=== PATIENT | male | born 1950 | race Caucasian/White ===

== ENCOUNTER 2017-03-13 20:15 | Emergency (ER) | payer MEDICARE, OTHER ==
[~2017-03-13 20:15] MED LIST: Calcium CHLORIDE 10% SYRINGE* 1 GM/10 ML ONE; EPINEPHrine SYR 0.1 MG/ML* (1:10,000) SYRINGE ONE; Sodium Bicarbonate 8.4%* 50 ML SYRINGE ONE
[2017-03-13 20:49] VITALS: BP 0/0
--- NOTE | 2017-03-13 21:46 | ED ---
Isaias Mederos Nilda, scribed for Maria Fernanda Lindsay MD on 03/13/17 at 2025 . Cardiac Resuscitation - HPI Summary HPI Summary: LVL 5 CAVEAT: Hx is limited due to pt unresponsiveness. This patient is a 66 year old M BIBA in cardiac arrest for the past 35 mins. Per EMS, pt was unresponsive and called 911. Per , pt had dinner and they were watching TV as they usually do. looked over at pt when she saw his eyes were wide open, took a huge gasp of air, had his tongue sticking out, and then stopped breathing. reports pt unresponsive and had urinary incontinence. states pt was former smoker who quit smoking for 3 years. denies CABG and stents. - History of Current Complaint Stated Complaint: RESPIRATORY DISTRESS Hx Obtained From: EMS Onset/Duration: Minutes/Hours: - 30 Arrest Witnessed: Yes Down-time Before Basic Life Support Initiated: Unknown Down-time Before Advanced Life Support Initiated: Down-time before ALS initiated : - 10 minutes Was AED Placed on Patient: Yes AED Placed on Patient By: EMS Did AED Recommend Defibrillation: Yes Was Defibrillating Shock Administered: Yes Did Patient Have Return of Spontaneous Circulation (ROSC): No - Prehospital Findings Airway: Gag Reflex Absent Breathing: Apnea Circulation/Rhythm: Asystole Disability/Neurologic: Unresponsive - Prehospital Intervention Airway: Other: Breathing: ETT Cuffed Circulation/Rhythm: Chest Compressions - Prehospital Response Airway: Gag Reflex Absent Breathing: ETT in Airway: Circulation/Rhythm: Asystole - Additional Pertinent History Do Not Resuscitate/Living Will: No EMS/Code Sheet Reviewed: Yes Total Down Time TAPE MAKER (minutes): 35 - Past Medical History Past Medical History: Coronary Artery Disease - Family History Family History: Unobtainable Due to Extremis - Social History Social History: Lives with Family - Review of Systems Review of Systems: Other: - unresponsive, no breathing, urinary incontinence ( per ) Physical Examination - Physical Examination Completion Of Physical Exam Limited Due To: Extremis Resuscitation Termination Time: 20:26 Resuscitation: Unsuccessful Physical Exam Additional Comments: Pt is breathless, pulsless, ET tube in place, pt bilat breath sounds with ambo bag. Abd distended. Pupils 2mm, equal, and fixed. - ED Findings Airway: Patent Breathing: Apnea Circulation/Rhythm: Asystole Disability/Neurological: Unresponsive - ED Intervention Breathing: ETT Cuffed - ED Response Airway: Gag Reflex Absent Breathing: ETT in Airway: Circulation/Rhythm: Asystole - Glascow Coma Score Eye Openin - None Motor: 1 - None Verbal: 1 - Intubated Coma Scale Total: 3 T Diagnostics - Vital Signs Vital Signs Temp Pulse Resp BP Pulse Ox 03/13/17 20:15 35.7 C 0 0 0/0 97 - Laboratory Lab Results: Lab Results 03/13/17 Range/Units 20:27 POC Glucose (mg/dL) 252 H (70-100) mg/dL Lab Statement: Any lab studies that have been ordered have been reviewed, and results considered in the medical decision making process. Cardiac Resus. Course/Dx - Course Assessment/Plan: ABC alert 1999. This pt is a 66 y/o male whose history was taken from and EMS. PMHx of HTN and longtime smoking. Pt quit smoking 3 years ago. Per , pt had dinner, sat in recliner, and fell asleep. Pt suddenly stopped breathing. called 911. When first responders arrived pt was placed on AED, which said shock advised. Pt was shocked. Paramedics started IO. Pt found to be in asystole. Pt brought to ER. Pt remained in asystole. Pt was given medications. Please look at code sheet for medication. Pt pronounced at 2025. - Diagnoses Provider Diagnoses: Cardiac arrest Discharge - Discharge Plan Condition: Disposition: Referrals: Ralph Cummings MD [Primary Care Provider] - The documentation as recorded by the Isaias hines Nilda accurately reflects the service I personally performed and the decisions made by , Maria Fernanda Lindsay MD.
== END 2017-03-13 20:26 | disposition expired ==
LOC: EDBD → MERGE 20:15 → ED 20:15
DX: I46.9 Cardiac arrest, cause unspecified (principal); Z87.891 Personal history of nicotine dependence; Z86.79 Personal history of other diseases of the circulatory system
CPT/HCPCS: 99285; J0171